=== PATIENT | male | born 1970 | race Caucasian/White ===

== ENCOUNTER → 2018-09-18 | Outpatient (CLI) | payer BC ==
--- NOTE | 2018-09-19 11:57 | Diagnostic Imaging Report ---
History: Numbness on right side. Comparison studies: CT sinus report 01/01/2016 Technique: Sagittal T1, T2 and IR, axial T2 and axial gradient echo Intravenous contrast: None Findings: Alignment: Normal lordosis. No scoliosis. Cervicomedullary junction: No abnormalities. Patent foramen magnum. Soft tissues: No T2 hyperintense inflammatory changes. Spinal cord: Normal in size and signal from the foramen magnum through T4 Vertebrae: Normal in height and signal intensity. No fractures, infection or neoplasm. Degenerative changes: C2-C3: No abnormalities. C3-C4: Mild uncinate process hypertrophy results in no canal stenosis and mild bilateral foraminal narrowing C4-C5: Central disc osteophyte complex, mild bilateral uncinate process and facet hypertrophy results in mild canal stenosis and mild right foraminal narrowing. C5-C6: Disc degeneration with loss of T2 signal and decreased intervertebral space. Asymmetric left disc osteophyte complex, left uncinate process hypertrophy and facet hypertrophy results in mild left canal stenosis and severe left foraminal narrowing C6-C7: Disc degeneration with loss of T2 signal. Diffuse disc osteophyte complex, bilateral uncinate process hypertrophy and facet hypertrophy results in mild canal stenosis and moderate bilateral foraminal narrowing C7-T1: Patent canal and foramina IMPRESSION: 1. Mild left degenerative canal stenosis and severe left foraminal narrowing at C5-6, progressed compared to previous CT report. 2. Mild canal stenosis and moderate degenerative bilateral foraminal narrowing at C6-7. 3. Other degenerative changes as described above without significant (moderate or severe) canal stenosis or foraminal narrowing. Signed by: DR Jacky Tapia M.D. on 09/19/2018 11:54 AM
== END ==
LOC: MRI 09:51
PROVIDERS: ATTEND Specialist
DX: M54.12 Radiculopathy, cervical region (principal)
CPT/HCPCS: 72141